=== PATIENT | female | born 2000 | race Caucasian/White ===

== ENCOUNTER 2020-10-12 17:47 | Emergency (ER) | payer OTHER ==
[~2020-10-12] VITALS: Ht 177.8 cm; Wt 61.2 kg
[2020-10-12] MEDS ORDERED: SERT25 (18:17)
[2020-10-12] MEDS ORDERED: Percocet 5-3251 EACH PO (19:38)
[2020-10-12] MEDS ORDERED: IBUP400 PO (19:38)
== END 2020-10-12 23:55 | disposition home or self-care (01) ==
LOC: ER 17:47
DX: M54.6 Pain in thoracic spine (principal); R20.0 Anesthesia of skin; Z88.0 Allergy status to penicillin; Z88.8 Allergy status to other drugs, medicaments and biological substances; Z79.899 Other long term (current) drug therapy
CPT/HCPCS: 96372; 99283-25; A9270; J1885